=== PATIENT | male | born 1980 | race Caucasian/White ===

== ENCOUNTER 2017-03-23 01:29 | Emergency (ER) | payer BC, OTHER ==
--- NOTE | 2017-03-23 01:56 | EDM.PDOC ---
ED HPI GENERAL MEDICAL PROBLEM - General Chief Complaint: Skin Complaint Stated Complaint: TOOTH PAIN Time Seen by Provider: 03/23/17 01:40 - History of Present Illness INITIAL COMMENTS - FREE TEXT/NARRATIVE: HISTORY AND PHYSICAL: History of present illness: The patient is a 36-year-old male with a history of cystic acne who presents with complaints of a swollen area behind his right ear that's causing him discomfort and is concerned that there is an abscess there. Patient has had incision and drainage of abscesses in this region before and he tells me that he has pain to this area over the last several days. The inside of the ear does not hurt he doesn't have any sore throat neck pain headache or upper respiratory congestion. He has not had any fevers. Patient is slated to see a coal hiker later this month in [place] for his cystic acne. Review of systems: As per history of present illness and below otherwise all systems reviewed and negative. Past medical history: As per history of present illness and as reviewed below otherwise noncontributory. Surgical history: As per history of present illness and as reviewed below otherwise noncontributory. Social history: No reported history of drug or alcohol abuse. Family history: As per history of present illness and as reviewed below otherwise noncontributory. Physical exam: Gen.: Well-developed well-nourished man who is nontoxic and vital signs have been reviewed by me HEENT: Atraumatic, normocephalic, pupils reactive, negative for conjunctival pallor or scleral icterus, mucous membranes moist, throat clear, neck supple, nontender, trachea midline. The TMs are slightly dull bilaterally and there is no mastoid tenderness or erythema appreciated bilaterally. Behind the inferior aspect of the auricle and lobe of the right ear there is dry skin appreciated and scab-like area with scar is seen and palpated. There is mild tenderness in this area and induration but no fluctuance. There is a very enlarged cervical/ posterior auricular lymph node appreciated which is mildly tender and mobile. There is no discrete area of fluctuance or swelling. Lungs: Clear to auscultation, breath sounds equal bilaterally, chest nontender. Heart: S1S2, regular rate and rhythm no overt murmurs Abdomen: Deferred Pelvis: Deferred Genitourinary: Deferred. Rectal: Deferred. Extremities: Atraumatic, negative for cords or calf pain. Neurovascular unremarkable. Neuro: Awake, alert, oriented. Gait normal into ER Motor and sensory unremarkable throughout. Exam nonfocal. Diagnostics: [] Therapeutics: [] I discussed with the patient that there is an area of induration but there is no gross fluctuance or abscess seen that I can incise and drain. I recommended putting him on antibiotics as there is tenderness in this area and a very enlarged lymph node indicating infection. I told him that the antibiotics with either eradicate the problem or would at least bring the abscess up to ahead that it could be drained. I will give him follow-up but he says that he does not live here locally and lives in [place] and will likely follow up there. Impression: Lymphadenopathy and cellulitis of right ear Definitive disposition and diagnosis as appropriate pending reevaluation and review of above. back of the ear Pain Score (Numeric/FACES): 7 - Related Data Allergies Allergy/AdvReac Type Severity Reaction Status Date / Time Penicillins Allergy Facial Verified 03/23/17 01:45 Swelling Home Meds: Home Meds . [No Known Home Meds] 03/23/17 [History] ED ROS GENERAL - Review of Systems Review Of Systems: ROS reveals no pertinent complaints other than HPI. ED EXAM, SKIN/RASH Exam: See Below (See dictation) Course - Vital Signs Last Recorded V/S: Last Vital Signs Temp 37.1 C 03/23/17 01:29 Pulse 91 03/23/17 01:29 Resp 18 03/23/17 01:29 BP 138/108 H 03/23/17 01:29 Pulse Ox 96 03/23/17 01:29 Departure - Departure Time of Disposition: 01:51 Disposition: Home, Self-Care 01 Condition: Good Clinical Impression: Lymphadenopathy Cellulitis Qualifiers: Site of cellulitis: other site Qualified Code(s): L03.818 - Cellulitis of other sites - Discharge Information Referrals: PCP,None [Primary Care Provider] - Additional Instructions: The following information is given to patients seen in the emergency department who are being discharged to home. This information is to outline your options for follow-up care. We provide all patients seen in our emergency department with a follow-up referral. The need for follow-up, as well as the timing and circumstances, are variable depending upon the specifics of your emergency department visit. If you don't have a primary care physician on staff, we will provide you with a referral. We always advise you to contact your personal physician following an emergency department visit to inform them of the circumstance of the visit and for follow-up with them and/or the need for any referrals to a consulting specialist. The emergency department will also refer you to a specialist when appropriate. This referral assures that you have the opportunity for followup care with a specialist. All of these measure are taken in an effort to provide you with optimal care, which includes your followup. Under all circumstances we always encourage you to contact your private physician who remains a resource for coordinating your care. When calling for followup care, please make the office aware that this follow-up is from your recent emergency room visit. If for any reason you are refused follow-up, please contact the emergency department at and ask to speak to the emergency department charge nurse. [facility] Primary care- Internal Medicine and Family Pr[facility] [address] [place] [id number] [facility] Specialty Care - ENT [address] [place] [phone] Please follow-up with your coal hiker as you have scheduled or contact one of our clinic providers for reevaluation further care of this problem. Return to ER as needed and as discussed and also return if the area comes up and can potentially be drained. Please take all medications as prescribed to be a [facility]. Return to ER as needed and as discussed. Use [id number] Tylenol or ibuprofen for pain. You have been given Bactrim via [facility] for this skin infection
== END 2017-03-23 02:00 | disposition home or self-care (01) ==
LOC: MW.ED 01:29
DX: H60.11 Cellulitis of right external ear (principal); Z88.0 Allergy status to penicillin
CPT/HCPCS: 99283